=== PATIENT | male | born 1965 | race Caucasian/White ===

== ENCOUNTER → 2017-03-18 | Outpatient (CLI) | payer BC ==
[~2017-03-18] MED LIST: CALC600T60 PO; COUM2.5T17 PO; FERR28TA PO; MORP15TASA PO; MULT1TAB18 PO; PERC5TAB12 PO; VITA250L PO
[2017-03-18 10:52] LABS: MEAN CORPUSCULAR VOLUME 87.9 fl (80.0-96.0); RED CELL DISTRIBUTION WIDTH 13.6 % (11.5-14.5); WHITE BLOOD COUNT 5.2 K/mm3 (4.0-10.0)
[2017-03-18 11:09] LABS: INR 0.93
[2017-03-18 11:22] LABS: ALBUMIN 3.8 GM/DL (3.2-5.2); ALBUMIN/GLOBULIN RATIO 1.12 (1.00-1.93); ALKALINE PHOSPHATASE 112 U/L (45-117); ALT/SGPT 30 U/L (12-78); ANION GAP 6 MEQ/L (8-16); AST/SGOT 18 U/L (15-37); BILIRUBIN,TOTAL 1.4 MG/DL (0.2-1.0); BLOOD UREA NITROGEN 14 MG/DL (7-18); CARBON DIOXIDE LEVEL 29 MEQ/L (21-32); CHLORIDE LEVEL 107 MEQ/L (98-107); CREATININE FOR GFR 0.76 MG/DL (0.70-1.30); GLOMERULAR FILTRATION RATE > 60.0 (>56); GLUCOSE, FASTING 96 MG/DL (70-105); POTASSIUM SERUM 4.5 MEQ/L (3.5-5.1); SODIUM LEVEL 142 MEQ/L (136-145); TOTAL PROTEIN 7.2 GM/DL (6.4-8.2)
--- NOTE | 2017-03-18 17:18 | ECGEPIP ---
Stationary ECG Study [facility] Test Date: 2017-03-18 Pat Name: ELMER GUTIÉRREZ Department: Room: - Gender: M Residential Collections: [facility] : 1965 Requested By: Jose New Order Number: [id number] Reading MD: Pratik Thomas Measurements Intervals [place] Rate: 68 P: 2 WA: 187 QRS: -23 QRSD: 112 T: 29 QT: 400 QTc: 427 Interpretive Statements SINUS RHYTHM WITH SINUS ARRHYTHMIA BORDERLINE LEFT AXIS DEVIATION MODERATE INTRAVENTRICULAR CONDUCTION DELAY Comparison tracing not on file Electronically Signed On 03-18-2017 17:17:31 EDT by Pratik Thomas
--- NOTE | 2017-03-19 04:25 | REP ---
Clinical: Arthritis . Comparison: None . Technique: PA and lateral. Findings: The mediastinum and cardiac silhouette are normal. Calcified mediastinal/hilar lymph nodes consistent with prior granulomatous disease. The lung parada are clear and without acute consolidation, effusion, or pneumothorax. The skeletal structures are intact and normal. Impression: 1. No acute cardiopulmonary process. Signed by Ravin Baez MD 03/19/2017 04:17 A
== END ==
LOC: M ADMPAT 09:16
PROVIDERS: ATTEND Orthopaedic Surgery
DX: Z01.818 Encounter for other preprocedural examination (principal); M17.12 Unilateral primary osteoarthritis, left knee

== ENCOUNTER 2017-03-31 08:25 | Inpatient (IN) | payer BC ==
[2017-03-18 09:54] VITALS: BP 138/84
--- NOTE | 2017-03-25 14:13 | HPE ---
DATE OF ADMISSION: 03/31/2017 HISTORY OF PRESENT ILLNESS: This is a pleasant male with continuing symptomatic left knee osteoarthritis. He has consented for a left total knee arthroplasty per Dr. Shaq Allen. Medical optimization per Dr. Arron Aguilar completed on 03/19/2017. X-rays are consistent with advanced osteoarthritis. NO KNOWN DRUG ALLERGIES. MEDICATION LIST (includes): - multivitamins - iron - vitamin B12 - calcium - Cialis 20 mg MEDICAL PROBLEM LIST (includes): Symptomatic left knee osteoarthritis. PAST MEDICAL HISTORY: History of obesity, but then subsequent significant weight loss secondary to gastric bypass. PAST SURGICAL HISTORY: Right arm, right knee and gastric bypass. FAMILY HISTORY: Diabetes, cancer, hypertension. REVIEW OF SYSTEMS: Denies chest pain, shortness of breath, dyspnea on exertion, fever, chills, malaise, upper respiratory or urinary tract symptoms. PHYSICAL EXAMINATION: Weight 248, height 74, temperature 97.8, blood pressure (BP) 138/70, pulse 62, body mass index (BMI) 31.9. He is a pleasant obese male in no acute distress. He is alert and oriented times three. Mood and affect are appropriate. He is ambulating without overt antalgia, assistance or favoring. Left lower extremity inspected. Skin temperature, color, sensory and motor within normal limits. He has positive joint line tenderness with crepitance through flexion and extension. Patellofemoral joint (PFJ) is congruent, static and dynamic. Knee is stable about the collateral ligaments. Patellar and quad tendons without palpable defects. No popliteal fossa mass or pain. Left hip range of motion is not limited or irritable through internal and external range of motion. Bowel sounds times four, soft, nontender. Chest: Regular rate and rhythm. Lungs: Clear to auscultation. Neck: Supple. Negative jugular venous distention (JVD) or bruits. Normocephalic. LABS AND DIAGNOSTICS: Reviewed and unremarkable. Nasal and sinus culture in addition to urine culture were no growth. EKG read by Pratik Thomas sinus rhythm with sinus arrhythmia, borderline left axis deviation. Chest x-ray no acute cardiopulmonary process read by Ravin Crawford, 03/19/2017. IMPRESSION: 1. Left knee symptomatic degenerative joint disease. 2. Patient consented for a left total knee arthroplasty per Dr. Shaq Allen. 3. Medical optimization per Dr. Arron Aguilar. 4. On-call to operating room (OR), 2 grams IV Kefzol in OR. 5. Sequential compression device (SCD) and thromboembolic deterrent stockings (TEDS) in OR. RADHIKA
[~2017-03-31] VITALS: Ht 188 cm; Wt 112.4 kg
[~2017-03-31 08:25] MED LIST changes: -COUM2.5T17 PO; -MORP15TASA PO; -PERC5TAB12 PO
[2017-04-17] VITALS (10 sets, daily range): BP systolic 118–144; BP diastolic 64–86
[2017-04-17] MEDS ORDERED: ceFAZolin 1GM INJ (J0690) As Ordered ONE ×2 (04:20→05:56)
[2017-04-17] MEDS ORDERED: TRANEXAMIC ACID 100 MG/ML 10ML VIAL As Ordered ONE (04:20)
[2017-04-17] MEDS ORDERED: BUPIVACAINE LIPOSOME/PF 1.3% 20 ML VIAL (13.3MG/ML)(EXPAREL) As Ordered ONE (04:21)
[2017-04-17] MEDS ORDERED: EPINEPHrine INJ 1 MG/ML 1ML AMP As Ordered ONE (04:21)
[2017-04-17] MEDS ORDERED: LR 1,000 ML IV ONE (06:00)
[2017-04-17] MEDS ORDERED: ACETAMINOPHEN 500 MG TAB PO ONE (06:00)
[2017-04-17] MEDS ORDERED: LR 1,000 ML IV SCH ×3 (06:00→11:15)
[2017-04-17] MEDS ORDERED: MIDAZOLAM INJ 2 MG/2 ML VIAL (J2250) As Ordered ONE ×3 (06:42→08:07)
[2017-04-17] MEDS ORDERED: fentaNYL 100 MCG/2 ML INJECTION (J3010) As Ordered ONE ×2 (06:42→08:06)
[2017-04-17] MEDS: fentaNYL 100 MCG/2 ML INJECTION (J3010) IV PRN ×2 (07:15→07:19)
[2017-04-17] MEDS: MIDAZOLAM INJ 2 MG/2 ML VIAL (J2250) IV PRN ×2 (07:15→07:17)
[2017-04-17] MEDS ORDERED: PROPOFOL 200 MG/20 ML VIAL As Ordered ONE (08:11)
[2017-04-17] MEDS ORDERED: LIDOCAINE 2% INJ 100 MG/5 ML SDV (FOR ANES.) As Ordered ONE (08:11)
[2017-04-17] MEDS ORDERED: PHENYLephrine HCL 500 MCG/5 ML (100MCG/ML) SYRINGE (J2370) As Ordered ONE (09:51)
[2017-04-17] MEDS ORDERED: ePHEDrine SULFATE 25 MG/5 ML(5MG/ML) SYRINGE As Ordered ONE (09:51)
[2017-04-17] MEDS ORDERED: ONDANSETRON 4MG/2ML VIAL (J2405) IV PRN ×4 (10:00→17:00)
[2017-04-17] MEDS ORDERED: HYDROmorphone HCL 1 MG/ML SYRINGE (J1170) IV PRN ×2 (10:00→11:15)
[2017-04-17] MEDS ORDERED: fentaNYL 100 MCG/2 ML INJECTION (J3010) IV PRN ×2 (10:00→11:15)
[2017-04-17] MEDS ORDERED: PERCOCET 5MG/325MG TAB PO PRN ×3 (10:00→14:00)
[2017-04-17] MEDS ORDERED: FLEET ENEMA PR PRN (10:15)
[2017-04-17] MEDS ORDERED: MORPHINE 1MG/ML IN 0.9% NACL 100ML IV BAG IV PRN (10:15)
[2017-04-17] MEDS ORDERED: NALBUPHINE HCL 10 MG/ML AMP (J2300) IV PRN (10:15)
[2017-04-17] MEDS ORDERED: diphenhydrAMINE INJ 50MG/ML VIAL (J1200) IV PRN (10:15)
[2017-04-17] MEDS ORDERED: NALOXONE INJ 0.4 MG/1 ML VIAL (J2310) IV PRN ×2 (10:15→17:00)
[2017-04-17] MEDS ORDERED: EPIDURAL/PCA KEYS XX PRN (10:15)
[2017-04-17] MEDS ORDERED: ACETAMINOPHEN TAB 650MG DOSE (2X325MG) PO PRN (10:15)
[2017-04-17] MEDS: LR 1,000 ML IV SCH ×3 (10:45→22:45)
[2017-04-17] MEDS ORDERED: ROPIvacaine 0.5% 30 ML INJECTION (J2795) ONE (10:48)
[2017-04-17] MEDS ORDERED: LIDOCAINE 1% MDV 20ML VIAL ONE (10:48)
[2017-04-17] MEDS: PERCOCET 5MG/325MG TAB PO PRN ×2 (14:15→18:14)
[2017-04-17] MEDS: MIRALAX *UNIT DOSE* 17GM PACKET PO SCH (16:49)
[2017-04-17] MEDS ORDERED: MORPHINE 4 MG/ML 1ML SYRINGE As Ordered ONE (16:52)
[2017-04-17] MEDS: MORPHINE 4 MG/ML 1ML SYRINGE IV PRN (16:56)
[2017-04-17] MEDS ORDERED: WARFARIN SOD 5 MG TAB PO ONE (17:00)
[2017-04-17] MEDS: MULTIVITAMINS/MINERALS THERAP 1 TAB PO SCH (20:47)
[2017-04-17] MEDS: SENOKOT S TAB PO SCH (20:47)
[2017-04-17] MEDS: MORPHINE 15 MG SA TAB PO SCH (20:47)
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
[2017-04-18] MEDS: MORPHINE 4 MG/ML 1ML SYRINGE IV PRN ×4 (00:17→17:43)
[2017-04-18 02:00] VITALS: BP 136/70
[2017-04-18] MEDS: PERCOCET 5MG/325MG TAB PO PRN (04:06)
[2017-04-18 06:00] VITALS: BP_SYST 140; BP_SYST 142; BP_DIAS 64; BP_DIAS 72
[2017-04-18 06:20] LABS: MEAN CORPUSCULAR HEMOGLOBIN 28.6 pg (27.0-33.0); MEAN CORPUSCULAR HGB CONC 33.1 g/dl (32.0-36.5); MEAN CORPUSCULAR VOLUME 86.6 fl (80.0-96.0); RED CELL DISTRIBUTION WIDTH 13.1 % (11.5-14.5); WHITE BLOOD COUNT 8.1 K/mm3 (4.0-10.0)
[2017-04-18 06:24] LABS: INR 1.1
[2017-04-18 06:40] LABS: ANION GAP 8 MEQ/L (8-16); BLOOD UREA NITROGEN 7 MG/DL (7-18); CALCIUM LEVEL 8.1 MG/DL (8.5-10.1); CARBON DIOXIDE LEVEL 27 MEQ/L (21-32); CHLORIDE LEVEL 103 MEQ/L (98-107); CREATININE FOR GFR 0.77 MG/DL (0.70-1.30); GLOMERULAR FILTRATION RATE > 60.0 (>56); GLUCOSE, FASTING 122 MG/DL (70-105); POTASSIUM SERUM 4.5 MEQ/L (3.5-5.1); SODIUM LEVEL 138 MEQ/L (136-145)
[2017-04-18] MEDS ORDERED: KETOROLAC 30 MG/ML VIAL (J1885) IV PRN (08:00)
[2017-04-18] MEDS ORDERED: CYCLOBENZAPRINE 10 MG TAB PO PRN (08:00)
[2017-04-18] MEDS: MIRALAX *UNIT DOSE* 17GM PACKET PO SCH (08:24)
[2017-04-18] MEDS: MOM 30ML SUSPENSION UDC PO SCH (08:24)
[2017-04-18] MEDS: MULTIVITAMINS/MINERALS THERAP 1 TAB PO SCH ×2 (08:25→21:00)
[2017-04-18] MEDS: FERROUS GLUCONATE 324 MG TAB PO SCH (08:25)
[2017-04-18] MEDS: CYANOCOBALAMIN 500 MCG TAB PO SCH (08:25)
[2017-04-18] MEDS: MORPHINE 15 MG SA TAB PO SCH ×2 (08:25→21:00)
[2017-04-18] MEDS: SENOKOT S TAB PO SCH ×2 (08:25→21:00)
--- NOTE | 2017-04-18 08:57 | REP ---
AP LATERAL LEFT KNEE, TWO VIEWS: HISTORY: Postop. COMPARISON: 07/13/2012. The patient is status post left total knee replacement. There is no acute fracture or dislocation. A small amount of subcutaneous air and surgical moy are present in the overlying soft tissue. IMPRESSION: The patient is status post left total knee replacement. There is anatomic alignment. Signed by Hal Franks MD 04/18/2017 09:12 A
--- NOTE | 2017-04-18 09:27 | IPNPDOC ---
Subjective Date Seen The patient was seen on 04/18/17. Subjective Chief Complaint/HPI The patient is a 51-year-old male admitted with a reason for visit of Arthritis Left Knee. Events since last encounter no complaints this morning Objective Physical Examination General Exam: Positive: Alert, Cooperative, No Acute Distress Eye Exam: Positive: PERRLA, Conjunctiva & lids normal, EOMI, Negative: Sclera icteric ENT Exam: Positive: Atraumatic, Mucous membr. moist/pink, Pharynx Normal Neck Exam: Positive: Supple, Negative: JVD, thyromegaly Chest Exam: Positive: Clear to auscultation, Normal air movement Heart Exam: Positive: Rate Normal, Regular Rhythm, Normal S1, Normal S2, Negative: Murmurs, Rubs Abdomen Exam: Positive: Normal bowel sounds, Soft, Negative: Tenderness, Hepatospenomegaly Extremity Exam: Positive: Normal pulses, Negative: Clubbing, Cyanosis, Edema Skin Exam: Positive: Nl turgor and temperature, Negative: Rash, Breakdown Assessment /Plan Problems (1) S/P total knee arthroplasty Problem Text: elective left knee total arthroplasty for advanced osteoarthritis pain control and dvt prophylaxis as per orthopedics. (2) History of obesity Status: Chronic Problem Text: with history of gastric bypass surgery Plan/VTE VTE Prophylaxis Ordered?: Yes VS, I&O, [facility] Vital Signs/I&O Vital Signs Date Time Temp Pulse Resp B/P (MAP) Pulse Ox O2 Delivery O2 Flow Rate FiO2 04/18/17 08:26 20 04/18/17 06:58 Room Air 04/18/17 06:00 99.2 94 142/72 (95) 95 04/17/17 07:20 3 I&O- Last 24 Hours up to 6 AM 04/18/17 06:00 Intake Total 4560 ml Output Total 4840 ml Balance -280 ml Laboratory Data 24H LABS Laboratory Tests 2 04/18/17 06:03: Prothrombin Time 14.4, Prothromb Time International Ratio 1.10, Anion Gap 8, Glomerular Filtration Rate > 60.0, Blood Urea Nitrogen 7, Creatinine 0.77, Sodium Level 138, Potassium Level 4.5, Chloride Level 103, Carbon Dioxide Level 27, Calcium Level 8.1L CBC/BMP Laboratory Tests 04/18/17 06:03 Red Blood Count 4.04 L, Mean Corpuscular Volume 86.6, Mean Corpuscular Hemoglobin 28.6, Mean Corpuscular Hemoglobin Concent 33.1, Red Cell Distribution Width 13.1, Calcium Level 8.1 L RYAN SAWYER MD Apr 18, 2017 09:27
[2017-04-18] MEDS: ACETAMINOPHEN 500 MG TAB PO SCH ×4 (09:46→21:01)
--- NOTE | 2017-04-18 11:33 | RO ---
DATE OF PROCEDURE: 04/17/2017 PREPROCEDURE DIAGNOSIS: Left knee degenerative arthritis. POSTPROCEDURE DIAGNOSIS: Left knee degenerative arthritis. PROCEDURE: Left total knee arthroplasty using a size 5 cruciate retaining femoral component with a size 4 tibial tray with 10 mm rotating platform polyethylene insert, 38 mm polyethylene button. All components were cemented. Prosthesis made by [employer]. It was a PFC sigma knee. SURGEON: Dr. Jose Allen. NATURAL HISTORY COLLECTIONS CURATOR: Mrs. Darlyn Rosario. ANESTHESIA: Left femoral nerve block with spinal and Exparel injection. SPECIMENS: Joint surface. ESTIMATED BLOOD LOSS: About 50 mL. COMPLICATIONS: None. PROCEDURE: Antibiotics were given intravenously preoperatively and then a left femoral nerve block was established, and then a spinal anesthetic was established. A tourniquet was placed on the left upper thigh and not inflated and the left lower extremity was carefully prepped and draped in the usual sterile fashion. The leg elevated and then after appropriate time out, the tourniquet inflated, then a longitudinal incision was then made for a direct medial parapatellar approach to the knee. Bovie cautery was used to coagulate crossing vessels. Medial parapatellar arthrotomy performed. Limited subperiosteal dissection around the proximal medial portion of the tibia was performed. Then we everted the patella and flexed the knee. The ACL was debrided. Drill was placed down the center of the femoral canal followed by the intramedullary tona with distal femoral cutting block set for a 5 degree valgus cut for a left knee at 10 mm resection level. Block was pinned into position. Distal femoral cut performed. The AP sizer jig measured for a size 5. With 3 degree external rotation, the block was pinned into position followed by the 4-in-1 block. Then we performed the anterior posterior chamfer cuts taking great care to protect the surrounding soft tissues. We then exposed the proximal tibia and used the extramedullary guide to estimate being parallel to the mechanical axis of the tibia. Appropriate slope was dialed in. 4 mm resection level was measured off the medial tibial condyle which is the most involved compartment and block was pinned into position followed by secondary check with extramedullary tona confirming that we appeared to be parallel to the mechanical axis. Proximal tibial osteotomy was then performed. Then we placed the alignment acid dumper laterally and performed a completion medial meniscectomy and debridement of the posterior medial osteophytes. We then placed the alignment acid dumper medially and performed completion lateral meniscectomy with debridement of the posterior lateral osteophytes. We then used the spacer block and the 10 mm actually fit very nicely in both flexion and extension with good stability to varus/valgus and AP stress testing and flexion extension gaps were symmetric. We then exposed the proximal tibia size for a #4 tibial tray which was pinned into position followed by the reamer and broached and then the 10 mm polyethylene then the trial femoral component, brought the knee into extension, everted the patella and performed a patellar osteotomy size for a 38 button. The lug holes were drilled. The patellar prosthesis was placed and patellar femoral tracking was anatomic. We then drilled the lug holes for the femur, removed all the trial components, then I injected the Exparel first in the trochlear notch, then posterior medially and posterior laterally, then around the periosteum of the femur and then as well as around the capsular incision medial and laterally. Then Mrs. Rosario mixed the cement on the back table as I prepared the bony surfaces for cementing with copious amount of pulsatile lavage irrigant solution. Once everything was thoroughly dried, I cemented the tibial tray, removed excess cement, placed the polyethylene then cemented the femoral component, removed excess cement and then brought the knee into extension, then cemented the patellar button, held it with a clamp and removed excess cement. We then copiously irrigated out the knee joint as we were waiting for the cement to harden. More Exparel was placed in the capsular incisions at this point and then the Tranexamic acid was applied. We then began closing the apex of the arthrotomy with two #1 interrupted PDS sutures, one medial patellar, one was placed and then we used the double armed # 1 running Stratafix to close the capsule. The tourniquet was then released. Bleeding points were coagulated with Bovie cautery and we copiously irrigated the deep subdermal tissues at this point then closed the subdermal tissues with interrupted #2-0 PDS sutures, skin closed with moy covered by Adaptic dry sterile bulky dressing. He was then transferred to the recovery room in stable condition. There were no intraoperative complications. Mrs. Darlyn Rosario was critical to the success of the procedure by helping to manipulate the knee as needed, to help with copious soft tissue retraction as needed so I could perform the operation smoothly and efficiently, help to close the wound, help to prepare the patient otherwise. RADHIKA
[2017-04-18] MEDS: oxyCODONE 5MG TAB PO PRN ×2 (11:47→16:01)
[2017-04-18 14:00] VITALS: BP 141/72
[2017-04-18] MEDS ORDERED: WARFARIN SOD 5 MG TAB PO ONE (17:00)
[2017-04-18 22:00] VITALS: BP 136/80
[2017-04-19] MEDS: oxyCODONE 5MG TAB PO PRN ×2 (03:15→13:33)
[2017-04-19 06:00] VITALS: BP 136/78
[2017-04-19] MEDS: MORPHINE 4 MG/ML 1ML SYRINGE IV PRN (06:04)
[2017-04-19 06:58] LABS: MEAN CORPUSCULAR HEMOGLOBIN 28.8 pg (27.0-33.0); MEAN CORPUSCULAR HGB CONC 33.1 g/dl (32.0-36.5); MEAN CORPUSCULAR VOLUME 86.9 fl (80.0-96.0); RED CELL DISTRIBUTION WIDTH 13.2 % (11.5-14.5); WHITE BLOOD COUNT 7.6 K/mm3 (4.0-10.0)
[2017-04-19 07:07] LABS: INR 1.18
[2017-04-19 07:20] LABS: ANION GAP 8 MEQ/L (8-16); BLOOD UREA NITROGEN 6 MG/DL (7-18); CALCIUM LEVEL 8.5 MG/DL (8.5-10.1); CARBON DIOXIDE LEVEL 27 MEQ/L (21-32); CHLORIDE LEVEL 104 MEQ/L (98-107); CREATININE FOR GFR 0.74 MG/DL (0.70-1.30); GLOMERULAR FILTRATION RATE > 60.0 (>56); GLUCOSE, FASTING 106 MG/DL (70-105); POTASSIUM SERUM 4.8 MEQ/L (3.5-5.1); SODIUM LEVEL 139 MEQ/L (136-145)
[2017-04-19] MEDS ORDERED: ENOXAPARIN 40 MG/0.4 ML SYRINGE (J1650) SC ONE (07:45)
[2017-04-19] MEDS ORDERED: PERC5TAB12 PO (08:21)
[2017-04-19] MEDS ORDERED: COUM2.5T17 PO (08:21)
[2017-04-19] MEDS ORDERED: MORP15TASA PO (08:21)
[2017-04-19] MEDS: MIRALAX *UNIT DOSE* 17GM PACKET PO SCH (08:48)
[2017-04-19] MEDS: MOM 30ML SUSPENSION UDC PO SCH (08:48)
[2017-04-19] MEDS: ACETAMINOPHEN 500 MG TAB PO SCH ×2 (08:48→13:33)
[2017-04-19] MEDS: CYANOCOBALAMIN 500 MCG TAB PO SCH (08:49)
[2017-04-19] MEDS: SENOKOT S TAB PO SCH (08:49)
[2017-04-19] MEDS: MORPHINE 15 MG SA TAB PO SCH (08:49)
[2017-04-19] MEDS: FERROUS GLUCONATE 324 MG TAB PO SCH (08:49)
[2017-04-19] MEDS: MULTIVITAMINS/MINERALS THERAP 1 TAB PO SCH (08:49)
--- NOTE | 2017-04-19 10:24 | IPNPDOC ---
Subjective Date Seen The patient was seen on 04/19/17. Subjective Chief Complaint/HPI The patient is a 51-year-old male admitted with a reason for visit of Arthritis Left Knee. Events since last encounter no complaints this morning Objective Physical Examination General Exam: Positive: Alert, Cooperative, No Acute Distress Eye Exam: Positive: PERRLA, Conjunctiva & lids normal, EOMI, Negative: Sclera icteric ENT Exam: Positive: Atraumatic, Mucous membr. moist/pink, Pharynx Normal Neck Exam: Positive: Supple, Negative: JVD, thyromegaly Chest Exam: Positive: Clear to auscultation, Normal air movement Heart Exam: Positive: Rate Normal, Regular Rhythm, Normal S1, Normal S2, Negative: Murmurs, Rubs Abdomen Exam: Positive: Normal bowel sounds, Soft, Negative: Tenderness, Hepatospenomegaly Extremity Exam: Positive: Normal pulses, Negative: Clubbing, Cyanosis, Edema Skin Exam: Positive: Nl turgor and temperature, Negative: Rash, Breakdown Assessment /Plan Problems (1) S/P total knee arthroplasty Problem Text: elective left knee total arthroplasty for advanced osteoarthritis pain control and dvt prophylaxis as per orthopedics. (2) History of obesity Status: Chronic Problem Text: with history of gastric bypass surgery Plan/VTE VTE Prophylaxis Ordered?: Yes VS, [facility] Vital Signs/I&O Vital Signs Date Time Temp Pulse Resp B/P (MAP) Pulse Ox O2 Delivery O2 Flow Rate FiO2 04/19/17 09:12 Room Air 04/19/17 08:49 16 04/19/17 06:00 99.0 104 136/78 (97) 97 04/17/17 07:20 3 I&O- Last 24 Hours up to 6 AM 04/19/17 05:59 Intake Total 2220 ml Output Total 2650 ml Balance -430 ml Laboratory Data 24H LABS Laboratory Tests 2 04/19/17 06:29: Prothrombin Time 15.2H, Prothromb Time International Ratio 1.18, Anion Gap 8, Glomerular Filtration Rate > 60.0, Blood Urea Nitrogen 6L, Creatinine 0.74, Sodium Level 139, Potassium Level 4.8, Chloride Level 104, Carbon Dioxide Level 27, Calcium Level 8.5 CBC/BMP Laboratory Tests 04/19/17 06:29 Red Blood Count 4.24 L, Mean Corpuscular Volume 86.9, Mean Corpuscular Hemoglobin 28.8, Mean Corpuscular Hemoglobin Concent 33.1, Red Cell Distribution Width 13.2, Calcium Level 8.5 RYAN SAWYER MD Apr 19, 2017 10:24
[2017-04-19] MEDS ORDERED: WARFARIN SOD 3 MG TAB PO ONE (17:00)
--- NOTE | 2017-04-21 09:30 | DSES ---
DATE OF ADMISSION: 04/17/2017 DATE OF DISCHARGE: 04/19/2017 ADMISSION DIAGNOSIS: Symptomatic left knee osteoarthritis. DISCHARGE DIAGNOSIS: Status post left total knee arthroplasty. HISTORY OF PRESENT ILLNESS: This is a pleasant male with continuing symptomatic left knee osteoarthritis. He consented for a left total knee arthroplasty per Dr. Shaq Allen. Medical optimization per Dr. Arron Aguilar. X-rays consistent with advanced osteoarthritis. OPERATION PERFORMED: Left total knee arthroplasty. HOSPITAL COURSE: The patient uneventfully underwent left total knee arthroplasty under spinal anesthesia with a left femoral nerve block and EXPAREL injection postoperatively. The patient was returned to recovery comfortable. Our hospital team felt the patient could be discharged on 04/19/2017 with the following instructions, including diet regular, Percocet p.r.n. pain, Coumadin and thromboembolic deterrent (ELA) stockings times 30 days, and weightbearing as tolerated left lower extremity with walker. Optifoam dressing change in 7 days with followup at [facility] 10-12 days for wound check and staple removal. The patient is encouraged to contact our office sooner than followup with increased pain, numbness or tingling down the lower extremity, redness, bleeding, drainage , fever greater than 101, or further concerns. RADHIKA
== END 2017-04-19 14:00 | disposition home health service (06) | DRG 302 ==
LOC: M OR 04-17 05:46 → M MS5PR 04-17 10:45
PROVIDERS: ADMIT Orthopaedic Surgery; ATTEND Orthopaedic Surgery
PROC: 0SRD0J9 Replacement of Left Knee Joint with Synthetic Substitute, Cemented, Open Approach (ICD-10-PCS; principal; 2017-04-17 07:30)
DX: M17.12 Unilateral primary osteoarthritis, left knee (principal); Z98.84 Bariatric surgery status

== ENCOUNTER → 2017-04-23 | Outpatient (CLI) | payer BC ==
[~2017-04-23] MED LIST changes: +COUM2.5T17 PO; +MORP15TASA PO; +PERC5TAB12 PO
[2017-04-23 20:49] LABS: MEAN CORPUSCULAR HEMOGLOBIN 28.7 pg (27.0-33.0); MEAN CORPUSCULAR VOLUME 86.8 fl (80.0-96.0); RED CELL DISTRIBUTION WIDTH 12.7 % (11.5-14.5); WHITE BLOOD COUNT 6.4 K/mm3 (4.0-10.0)
[2017-04-23 22:03] LABS: ERYTHROCYTE SEDIMENTATION RATE 60 mm/hr (0-20)
--- NOTE | 2017-04-24 14:24 | REP ---
Left lower extremity Duplex Doppler venous ultrasound: Real time compression and duplex Doppler interrogation of the left lower extremity deep venous system is performed. The left common femoral, superficial femoral and popliteal veins are fully compressible with transducer pressure and demonstrate normal spontaneous and phasic flow, without evidence of deep venous thrombosis. Impression: No evidence of deep venous thrombosis of the left lower extremity femoral popliteal venous system. Signed by Real Blum MD 04/23/2017 07:06 P
== END ==
LOC: M LAB 17:30
PROVIDERS: ATTEND Physician Assistant Surgical
DX: Z47.89 Encounter for other orthopedic aftercare (principal)

== ENCOUNTER → 2017-05-11 | Outpatient (REF) | payer BC ==
[2017-05-11 14:54] LABS: INR 1.92
== END ==
LOC: M LAB REF 14:20
PROVIDERS: ATTEND Nurse Practitioner Family
DX: Z79.01 Long term (current) use of anticoagulants (principal)

== ENCOUNTER → 2017-05-11 | Outpatient (REF) | payer BC ==
[2017-05-11 14:47] LABS: BASO % 0.1 % (0.0-1.0); EOS # 0.1 K/mm3 (0.0-0.50); EOS % 1.9 % (0.0-3.0); LARGE UNSTAINED CELL # 0.1 K/mm3 (0.0-0.4); LARGE UNSTAINED CELL % 2.2 % (0.0-4.0); LYMPH # 1.1 K/mm3 (1.5-4.5); MEAN CORPUSCULAR HEMOGLOBIN 28.1 pg (27.0-33.0); MEAN CORPUSCULAR HGB CONC 32.5 g/dl (32.0-36.5); MEAN CORPUSCULAR VOLUME 86.6 fl (80.0-96.0); MONO # 0.3 K/mm3 (0.0-0.8); MONO % 7.2 % (0.0-5.0); NEUTROPHILS # 2.5 K/mm3 (1.8-7.7); NEUTROPHILS % 61.6 % (36.0-66.0); PLATELET COUNT, AUTOMATED 214 k/mm3 (150-450); RED CELL DISTRIBUTION WIDTH 13.2 % (11.5-14.5)
[2017-05-11 15:13] LABS: ERYTHROCYTE SEDIMENTATION RATE 49 mm/hr (0-20)
== END ==
LOC: M LAB REF 14:21
PROVIDERS: ATTEND Physician Assistant Surgical
DX: Z47.1 Aftercare following joint replacement surgery (principal)

== ENCOUNTER → 2020-02-06 | Outpatient (CLI) | payer BC | LOC: M LABSMTC 11:05 | PROVIDERS: ATTEND Orthopaedic Surgery | DX: Z03.818 Encounter for observation for suspected exposure to other biological agents ruled out (principal) ==

== ENCOUNTER → 2020-02-19 | Outpatient (CLI) | payer BC | LOC: M LABSMTC 09:04 | PROVIDERS: ATTEND Physician Assistant | DX: Z01.818 Encounter for other preprocedural examination (principal); Z11.59 Encounter for screening for other viral diseases ==

== ENCOUNTER → 2020-03-04 | Outpatient (CLI) | payer BC | LOC: M LABSMTC 08:56 | PROVIDERS: ATTEND Physician Assistant | DX: Z01.818 Encounter for other preprocedural examination (principal); Z11.59 Encounter for screening for other viral diseases ==

== ENCOUNTER → 2023-01-13 | Outpatient (CLI) | payer BC ==
[2023-01-13 10:21] LABS: HEMATOCRIT 41.9 % (42.0-52.0); HEMOGLOBIN 12.8 g/dl (13.5-17.5); MEAN CORPUSCULAR HEMOGLOBIN 27.2 pg (27.0-33.0); MEAN CORPUSCULAR HGB CONC 30.5 g/dl (32.0-36.5); PLATELET COUNT, AUTOMATED 250 10^3/uL (150-450); RED BLOOD COUNT 4.71 10^6/uL (4.30-6.10); WHITE BLOOD COUNT 4.9 10^3/uL (4.0-10.0)
[2023-01-13 10:53] LABS: ALBUMIN 3.9 G/DL (3.2-5.2); ALKALINE PHOSPHATASE 144 U/L (46-116); ALT/SGPT 32 U/L (7.0-40); AST/SGOT 25 U/L (<34); BILIRUBIN,TOTAL 1.9 MG/DL (0.3-1.2); BLOOD UREA NITROGEN 17 MG/DL (9-23); CALCIUM LEVEL 8.9 MG/DL (8.5-10.1); CARBON DIOXIDE LEVEL 30 MMOL/L (20-31); CHLORIDE LEVEL 105 MMOL/L (98-107); CHOLESTEROL LEVEL 160 MG/DL (<200); CHOLESTEROL RISK RATIO 2.43 (<5); FOLATE 21.07 NG/ML (>5.4); GLOMERULAR FILTRATION RATE > 60.0 (>56); GLUCOSE, FASTING 93 MG/DL (60-100); HDL CHOLESTEROL 65.6 MG/DL (>40); NON-HDL-C 94.4 MG/DL; SODIUM LEVEL 140 MMOL/L (136-145); TRIGLYCERIDES LEVEL 62 MG/DL (<150)
[2023-01-13 10:55] LABS: VITAMIN B12 LEVEL > 2000 PG/ML (211-911)
== END ==
LOC: M WUC 08:16
PROVIDERS: ATTEND Physician Assistant
DX: I10 Essential (primary) hypertension (principal); E55.9 Vitamin D deficiency, unspecified; R35.1 Nocturia

== ENCOUNTER → 2023-03-11 | Outpatient (CLI) | payer BC ==
[2023-03-11 12:03] LABS: HEMATOCRIT 38.1 % (42.0-52.0); HEMOGLOBIN 11.9 g/dl (13.5-17.5); MEAN CORPUSCULAR HEMOGLOBIN 27.8 pg (27.0-33.0); MEAN CORPUSCULAR HGB CONC 31.2 g/dl (32.0-36.5); PLATELET COUNT, AUTOMATED 192 10^3/uL (150-450); RED BLOOD COUNT 4.28 10^6/uL (4.30-6.10); WHITE BLOOD COUNT 4.8 10^3/uL (4.0-10.0)
[2023-03-11 12:17] LABS: INR 0.98; PROTHROMBIN TIME 13.2 SECONDS (12.5-14.5)
[2023-03-11 12:26] LABS: ALBUMIN 3.6 G/DL (3.2-5.2); ALKALINE PHOSPHATASE 121 U/L (46-116); ALT/SGPT 24 U/L (7.0-40); AST/SGOT 16 U/L (<34); BILIRUBIN,TOTAL 1.7 MG/DL (0.3-1.2); BLOOD UREA NITROGEN 14 MG/DL (9-23); CALCIUM LEVEL 8.6 MG/DL (8.5-10.1); CARBON DIOXIDE LEVEL 25 MMOL/L (20-31); CHLORIDE LEVEL 109 MMOL/L (98-107); GLOMERULAR FILTRATION RATE > 60.0 (>56); GLUCOSE, FASTING 92 MG/DL (60-100); POTASSIUM SERUM 4.6 MMOL/L (3.5-5.1); SODIUM LEVEL 141 MMOL/L (136-145); TOTAL PROTEIN 6.5 G/DL (5.7-8.2)
[2023-03-11 13:27] LABS: ERYTHROCYTE SEDIMENTATION RATE 30 mm/hr (0-20)
== END ==
LOC: M RAD 10:55
PROVIDERS: ATTEND Orthopaedic Surgery
DX: Z01.818 Encounter for other preprocedural examination (principal); M17.11 Unilateral primary osteoarthritis, right knee

== ENCOUNTER → 2024-02-26 | Outpatient (CLI) | payer BC ==
[2024-02-26 21:06] LABS: C REACTIVE PROTEIN QUANTITATIV < 0.40 MG/DL (<1.0)
[2024-02-26 21:44] LABS: RHEUMATOID FACTOR QUANT 5.8 IU/ML (<14)
[2024-02-29 15:22] LABS: ANA SCREEN, IFA NEGATIVE (NEGATIVE)
== END ==
LOC: M WUC 15:16
PROVIDERS: ATTEND Physician Assistant
DX: M13.0 Polyarthritis, unspecified (principal); R53.83 Other fatigue; W57.XXXA Bitten or stung by nonvenomous insect and other nonvenomous arthropods, initial encounter

== ENCOUNTER → 2024-12-20 | Outpatient (CLI) | payer BC ==
[~2024-12-20] MED LIST changes: +MORP-138 PO; -MORP15TASA PO
[2024-12-20 12:24] LABS: HEMATOCRIT 41.3 % (42.0-52.0); HEMOGLOBIN 12.6 g/dl (13.5-17.5); MEAN CORPUSCULAR HEMOGLOBIN 26.9 pg (27.0-33.0); MEAN CORPUSCULAR HGB CONC 30.5 g/dl (32.0-36.5); MEAN CORPUSCULAR VOLUME 88.1 fl (80.0-96.0); PLATELET COUNT, AUTOMATED 231 10^3/uL (150-450); RED BLOOD COUNT 4.69 10^6/uL (4.30-6.10)
[2024-12-20 12:34] LABS: APPEARANCE, URINE CLEAR (CLEAR); BACTERIA, URINE AUTO NEGATIVE (NEGATIVE); BILIRUBIN, URINE AUTO NEGATIVE (NEGATIVE); BLOOD, URINE BLOOD NEGATIVE (NEGATIVE); COLOR, URINE YELLOW (YELLOW); GLUCOSE, URINE (UA) AUTO NEGATIVE (NEGATIVE); KETONE, URINE AUTO NEGATIVE (NEGATIVE); LEUKOCYTE ESTERASE, URINE AUTO NEGATIVE (NEGATIVE); MUCUS, URINE SMALL (NEGATIVE); NITRITE, URINE AUTO NEGATIVE (NEGATIVE); PROTEIN, URINE AUTO NEGATIVE (NEGATIVE); RBC, URINE AUTO 0 /HPF (0-3); SPECIFIC GRAVITY URINE AUTO 1.017 (1.002-1.035); SQUAMOUS EPITHELIAL CELL UR AU 0 /HPF (0-6); UROBILINOGEN, URINE AUTO 0.2 mg/dL (0.0-2.0); WBC, URINE AUTO 1 /HPF (0-3)
[2024-12-20 12:52] LABS: ALBUMIN 3.8 G/DL (3.2-5.2); ALKALINE PHOSPHATASE 131 U/L (40-129); ALT/SGPT 31 U/L (7.0-40); AST/SGOT 26 U/L (<34); BILIRUBIN,TOTAL 1.8 MG/DL (0.3-1.2); BLOOD UREA NITROGEN 15 MG/DL (9-23); CALCIUM LEVEL 8.9 MG/DL (8.3-10.6); CARBON DIOXIDE LEVEL 27 MMOL/L (20-31); CHLORIDE LEVEL 106 MMOL/L (98-107); CREATININE FOR GFR 0.82 MG/DL (0.70-1.30); GLOMERULAR FILTRATION RATE > 90.0 (>49); GLUCOSE, FASTING 95 MG/DL (74-106); POTASSIUM SERUM 4.4 MMOL/L (3.5-5.1); PSA SCREENING 0.53 NG/ML (< 4.00); SODIUM LEVEL 143 MMOL/L (136-145); TOTAL PROTEIN 6.8 G/DL (5.7-8.2)
[2024-12-20 12:53] LABS: TOTAL 25(OH) VITAMIN D 20.2 NG/ML (20.0-100.0)
[2024-12-21 07:33] LABS: WHITE BLOOD COUNT 5.8 10^3/uL (4.0-10.0)
== END ==
LOC: M WUC 08:04
PROVIDERS: ATTEND Physician Assistant
DX: I10 Essential (primary) hypertension (principal); R35.1 Nocturia; E55.9 Vitamin D deficiency, unspecified